=== PATIENT | male | born 1950 | race Caucasian/White ===

== ENCOUNTER 2016-06-28 19:22 | Inpatient (IN) ==
[2016-06-28 20:07] LABS: Basophils % 0.2 %; Hematocrit 43.9 % (37.5-50.1); Hemoglobin 14.8 g/dL (12.9-16.9); Immature Granulocytes % 0.4 % (0-4); Immature Platelets 1.8 % (1.1-6.1); Lymphocytes # 1.3 K/mcL (0.6-4.6); Lymphocytes % 8.6 %; Mean Corpuscular HGB Conc 33.7 g/dL (31.6-35.5); Mean Corpuscular Hemoglobin 28.9 pg (28.0-33.3); Mean Corpuscular Volume 85.7 fL (83.0-100.0); Mean Platelet Volume 8.6 fL (9.4-12.4); Monocytes % 13.3 %; Neutrophils # 11.8 K/mcL (1.6-8.9); Platelet Count 566 K/mcL (140-400); Red Blood Count 5.12 M/mcL (4.19-5.50); Red Cell Distribution Width 14.4 % (11.5-14.5); Segmented Neutrophils % 77.5 %
[2016-06-28 20:23] LABS: Albumin 3.9 g/dL (3.5-5.0); Albumin/Globulin Ratio 1.1 (1.1-2.2); Bilirubin,Direct 0.5 mg/dL (0.0-0.5); Bilirubin,Indirect 0.8 mg/dL (0.0-1.2); Bilirubin,Total 1.3 mg/dL (0.2-1.2); Calcium 10.3 mg/dL (8.6-10.8); Globulin 3.7 g/dL (2.4-3.5); Potassium 4.1 mEq/L (3.5-4.5); Total Protein 7.6 g/dL (6.0-8.3)
[2016-06-28] MEDS ORDERED: *HR* Morphine 2 MG/ML SYRINGE IVP ONE (20:39)
[2016-06-28] MEDS ORDERED: Ondansetron 4 MG/2 ML VIAL IVP ONE ×2 (20:39→21:35)
[2016-06-28] MEDS ORDERED: 0.9 % Sodium Chloride 1,000 ML IVC ONE (20:39)
--- NOTE | 2016-06-28 20:52 | Emergency Department Note ---
Disposition Clinical Impression: NAVJOT (acute kidney injury), SBO (small bowel obstruction), Abnormal CT of the abdomen Leukocytosis Qualifiers: Leukocytosis type: unspecified Qualified Code(s): D72.829 - Elevated white blood cell count, unspecified Disposition: Admitted As Inpatient Condition: Fair Referrals: Candis Head [employer] [Primary Care Provider] - Forms: Work/School Release, ED Satisfaction Letter Time of Disposition: 22:47 Abdominal Pain HPI - General Chief Complaint: ED Abdominal Pain Stated Complaint: Abd pain N/V Time Seen by Provider: 06/28/16 20:37 Source: patient Mode of arrival: ambulatory Limitations: no limitations Nursing Notes Reviewed: Yes Vital Signs Reviewed: Yes - History of Present Illness HPI Narrative: Patient is a 65-year-old male with past medical history of COPD, previous AL, stents, hyperlipidemia, hypertension. He presents today due to lower abdominal pain. He said that it started yesterday evening and is a constant sharp pain with occasional worsening exacerbation of sharp pain. He also admits to associated nausea or vomiting. Denies any chest pain, shortness of breath, fevers, dysuria, hematuria, diarrhea. Denies any blood in vomit or stool. He has never had anything like this before. Pain Scale: 6 - Related Data Home Medications Medication Instructions Recorded Confirmed Amlodipine [Norvasc] 5 mg PO QAM 01/24/15 02/01/15 Aspirin Enteric Coated [Aspirin EC] 81 mg PO QAM 01/24/15 02/01/15 Atorvastatin [Lipitor] 80 mg PO QAM 01/24/15 02/01/15 Clopidogrel [Plavix] 75 mg PO QAM 01/24/15 02/01/15 Esomeprazole Magnesium [Nexium] 40 mg PO QAM 01/24/15 02/01/15 Furosemide [Lasix] 20 mg PO QAM 01/24/15 02/01/15 Loratadine [Claritin] 10 mg PO QAM 01/24/15 02/01/15 Metoprolol [Lopressor] 75 mg PO BID 01/24/15 02/01/15 Potassium Chloride [Klor-Con 10 meq PO QAM 01/24/15 02/01/15 Sprinkle] Ranitidine HCl [Zantac] 150 mg PO BID 01/24/15 02/01/15 Previous Rx's Medication Instructions Recorded MetroNIDAZOLE [Flagyl] 500 mg PO TID #42 tablet 02/03/15 Allergies Allergy/AdvReac Type Severity Reaction Status Date / Time ezetimibe [From Vytorin] AdvReac Muscle Pain Verified 06/28/16 19:39 lisinopril AdvReac Cough Verified 06/28/16 19:39 simvastatin [From Vytorin] AdvReac Muscle Pain Verified 06/28/16 19:39 Constitutional: Denies: fever Cardiovascular: Denies: chest pain, palpitations, dyspnea on exertion Respiratory: Denies: cough, dyspnea, wheezes Gastrointestinal: Reports: abdominal pain, nausea, vomiting. Denies: diarrhea, constipation, hematemesis, melena, hematochezia Genitourinary: Denies: urgency, dysuria, frequency, hematuria Musculoskeletal: Denies: back pain Integumentary: Denies: rash Neurological: Denies: headache, weakness, numbness, paresthesias Abdominal Pain PMH - Past Medical History Medical history: Reports: arthritis, COPD, coronary artery disease, GERD, hyperlipidemia, hypertension, kidney stones, myocardial infarction, peripheral artery disease Male Surgical History: Reports: other Psychiatric history: Reports: no psych history - Social History Smoking status: Current every day smoker Alcohol use: Reports: none Drug use: Reports: none Physical Exam - General Limitations: no limitations General appearance: alert, in no apparent distress - Head Head exam: atraumatic, normocephalic, normal inspection - Eye Eye exam: Present: normal appearance, PERRL, EOMI - ENT ENT exam: normal exam, mucous membranes moist - Neck Neck exam: Present: normal inspection, full ROM, trachea midline - Chest Chest inspection: Present: normal inspection, symmetric chest wall rise - Respiratory Respiratory exam: Present: normal lung sounds bilaterally - Cardiovascular Cardiovascular exam: Present: normal rhythm, tachycardia, normal heart sounds - Abdominal Exam Abdominal exam: Present: soft, Non-Tender. Absent: tenderness, distention, guarding, rebound, rigidity, Chao's sign, Rovsing's sign, tenderness at McBurney's Point - Extremities Exam Extremities exam: Present: normal inspection, full ROM. Absent: tenderness, pedal edema - Neurological Exam Neurological exam: Present: alert, oriented X3 - Psychiatric Psychiatric exam: Present: normal affect, normal mood - Skin Skin exam: Present: warm, dry, intact, normal color Course Course Narrative: Patient is tachycardic on exam. Otherwise, the rest of his vitals were within normal limits on my exam. Abdomen exam was fairly benign, soft, nontender, possible mild distention but could be obese body habitus. thinks the patient's abdomen is distended from baseline. Basic labs, EKG, troponin, chest x-ray, CT of the pelvis will be obtained. EKG shows sinus tachycardia with no acute ST elevation or depression. Patient will given Zofran for nausea, morphine for pain control, fluids for tachycardia. 22:45 patient had leukocytosis of 15. BMP showed a Ride. Patient receiving fluids. UA negative for UTI. CT scan showed a small bowel charge him with a transition point, also soft tissue nodule adjacent to the transition point. Dr. Salgado with surgery was contacted, he is accepted the patient onto his service. Transition point nodule was discussed with him as well. NG tube placed. He had no further recommendations will request at this time. Patient currently symptomatically controlled. Chest X-Ray 06/28/16 19:41 IMPRESSION: Low lung volumes with left lateral basilar opacity, may reflect atelectasis or small consolidation. Otherwise no acute cardiopulmonary findings. D/ / Mich Winter MD / Mich Winter MD Interpreting Provider: Mich Winter MD Abdomen/Pelvis CT 06/28/16 20:59 IMPRESSION: Small bowel obstruction with transition point in the central abdomen. Irregular mesenteric soft tissue nodule with punctate calcification, adjacent to transition point likely with related desmoplastic reaction. Differential considerations include sclerosing mesenteritis and carcinoid tumor. D/ / John Miller MD / John Miller MD Interpreting Provider: John Miller MD Vital Signs Temperature 98 F 06/28/16 19:33 Pulse Rate 128 06/28/16 19:33 Respiratory Rate 22 06/28/16 19:33 Blood Pressure 131/71 06/28/16 19:33 O2 Sat by Pulse Oximetry 92 06/28/16 19:33 Temperature 98 F 06/28/16 19:33 Pulse Rate 112 06/28/16 21:30 Respiratory Rate 20 06/28/16 21:30 Blood Pressure 136/70 06/28/16 21:30 O2 Sat by Pulse Oximetry 94 06/28/16 21:30 Oxygen Delivery Oxygen Delivery Room Air Abdominal Pain - MDM Narrative Medical decision making narrative: Patient is tachycardic on exam. Otherwise, the rest of his vitals were within normal limits on my exam. Abdomen exam was fairly benign, soft, nontender, possible mild distention but could be obese body habitus. thinks the patient's abdomen is distended from baseline. Basic labs, EKG, troponin, chest x-ray, CT of the pelvis will be obtained. EKG shows sinus tachycardia with no acute ST elevation or depression. Patient will given Zofran for nausea, morphine for pain control, fluids for tachycardia. 22:45 patient had leukocytosis of 15. BMP showed a Ride. Patient receiving fluids. UA negative for UTI. CT scan showed a small bowel charge him with a transition point, also soft tissue nodule adjacent to the transition point. Dr. Salgado with surgery was contacted, he is accepted the patient onto his service. Transition point nodule was discussed with him as well. NG tube placed. He had no further recommendations will request at this time. Patient currently symptomatically controlled. - Medical Records Medical records reviewed: Yes I reviewed the patient's medical records. - Lab Data Lab results reviewed: Yes I reviewed the patient's lab results. Result diagrams: 06/28/16 20:00 06/28/16 20:00 Lab Results 06/28/16 06/28/16 06/28/16 Range/Units 20:00 20:00 20:00 WBC 15.2 H (4.3-11.1) K/mcL RBC 5.12 (4.19-5.50) M/mcL Hgb 14.8 (12.9-16.9) g/dL Hct 43.9 (37.5-50.1) % MCV 85.7 (83.0-100.0) fL MCH 28.9 (28.0-33.3) pg MCHC 33.7 (31.6-35.5) g/dL RDW 14.4 (11.5-14.5) % Plt Count 566 H (140-400) K/mcL MPV 8.6 L (9.4-12.4) fL Immature Gran % 0.4 (0-4) % Seg Neutrophils % 77.5 % Lymphocytes % 8.6 % Monocytes % 13.3 % Eosinophils % 0.0 % Basophils % 0.2 % Neutrophils # 11.8 H (1.6-8.9) K/mcL Lymphocytes # 1.3 (0.6-4.6) K/mcL Monocytes # 2.0 H (0.0-1.3) K/mcL Eosinophils # 0.0 (0.0-0.6) K/mcL Basophils # 0.0 (0.0-0.2) K/mcL Immature Plt Fraction 1.8 (1.1-6.1) % Sodium 140 (136-145) mEq/L Potassium 4.1 (3.5-4.5) mEq/L Chloride 101 (98-109) mEq/L Carbon Dioxide 27 (19-29) mEq/L BUN 23 (8-26) mg/dL Creatinine 1.82 H (0.72-1.25) mg/dL Est GFR ( Amer) 45 L (> 60) Est GFR (Non-Af Amer) 37 L (> 60) BUN/Creatinine Ratio 13 (6-26) Glucose 137 H (70-99) mg/dL Calculated Osmolality 296 (280-300) Lactic Acid (0.5-2.2) mmol/L Calcium 10.3 (8.6-10.8) mg/dL Total Bilirubin 1.3 H (0.2-1.2) mg/dL Direct Bilirubin 0.5 (0.0-0.5) mg/dL Indirect Bilirubin 0.8 (0.0-1.2) mg/dL AST 17 (5-34) Units/L ALT 16 (0-55) Units/L Alkaline Phosphatase 94 (38-126) Units/L Troponin I 0.00 (0-0.03) ng/mL Serum Total Protein 7.6 (6.0-8.3) g/dL Albumin 3.9 (3.5-5.0) g/dL Globulin 3.7 H (2.4-3.5) g/dL Albumin/Globulin Ratio 1.1 (1.1-2.2) Lipase 15 (8-78) Units/L Urine Color (Yellow) Urine Clarity (Clear) Urine pH (5.0-8.0) pH Units Ur Specific [place] (1.010-1.025) Urine Protein (Neg-Trace) mg/dL Urine Glucose (UA) (Normal) mg/dL Urine Ketones (Negative) mg/dL Urine Blood (Negative) Urine Nitrite (Negative) Urine Bilirubin (Negative) Urine Urobilinogen (Normal) mg/dL Ur Leukocyte Esterase (Negative) Urine Microscopic RBC (0-3) per hpf Urine Microscopic WBC (0-3) per hpf Ur Squamous Epith Cells (None-Few) per lpf Urine Bacteria (None-Few) per hpf Hyaline Casts (None-Few) per lpf Granular Casts (None Seen) per lpf Urine Mucus (Few) Urine Yeast Ur Culture Indicated? (NO) 06/28/16 06/28/16 Range/Units 21:00 21:06 WBC (4.3-11.1) K/mcL RBC (4.19-5.50) M/mcL Hgb (12.9-16.9) g/dL Hct (37.5-50.1) % MCV (83.0-100.0) fL MCH (28.0-33.3) pg MCHC (31.6-35.5) g/dL RDW (11.5-14.5) % Plt Count (140-400) K/mcL MPV (9.4-12.4) fL Immature Gran % (0-4) % Seg Neutrophils % % Lymphocytes % % Monocytes % % Eosinophils % % Basophils % % Neutrophils # (1.6-8.9) K/mcL Lymphocytes # (0.6-4.6) K/mcL Monocytes # (0.0-1.3) K/mcL Eosinophils # (0.0-0.6) K/mcL Basophils # (0.0-0.2) K/mcL Immature Plt Fraction (1.1-6.1) % Sodium (136-145) mEq/L Potassium (3.5-4.5) mEq/L Chloride (98-109) mEq/L Carbon Dioxide (19-29) mEq/L BUN (8-26) mg/dL Creatinine (0.72-1.25) mg/dL Est GFR ( Amer) (> 60) Est GFR (Non-Af Amer) (> 60) BUN/Creatinine Ratio (6-26) Glucose (70-99) mg/dL Calculated Osmolality (280-300) Lactic Acid 1.2 (0.5-2.2) mmol/L Calcium (8.6-10.8) mg/dL Total Bilirubin (0.2-1.2) mg/dL Direct Bilirubin (0.0-0.5) mg/dL Indirect Bilirubin (0.0-1.2) mg/dL AST (5-34) Units/L ALT (0-55) Units/L Alkaline Phosphatase (38-126) Units/L Troponin I (0-0.03) ng/mL Serum Total Protein (6.0-8.3) g/dL Albumin (3.5-5.0) g/dL Globulin (2.4-3.5) g/dL Albumin/Globulin Ratio (1.1-2.2) Lipase (8-78) Units/L Urine Color Dark Yellow (Yellow) Urine Clarity Cloudy A (Clear) Urine pH 6.0 (5.0-8.0) pH Units Ur Specific [place] 1.029 H (1.010-1.025) Urine Protein 100 H (Neg-Trace) mg/dL Urine Glucose (UA) Normal (Normal) mg/dL Urine Ketones Trace H (Negative) mg/dL Urine Blood Negative (Negative) Urine Nitrite Negative (Negative) Urine Bilirubin Small H (Negative) Urine Urobilinogen Normal (Normal) mg/dL Ur Leukocyte Esterase Small H (Negative) Urine Microscopic RBC 0-3 (0-3) per hpf Urine Microscopic WBC 5-15 H (0-3) per hpf Ur Squamous Epith Cells Many H (None-Few) per lpf Urine Bacteria Few (None-Few) per hpf Hyaline Casts Few (None-Few) per lpf Granular Casts Moderate H (None Seen) per lpf Urine Mucus Few (Few) Urine Yeast Test Not Performed Ur Culture Indicated? YES A (NO) - Radiology Data Radiology results reviewed: Yes I reviewed the patient's radiology results. Chest X-Ray 06/28/16 19:41 IMPRESSION: Low lung volumes with left lateral basilar opacity, may reflect atelectasis or small consolidation. Otherwise no acute cardiopulmonary findings. D/ / Mich Winter MD / Mich Winter MD Interpreting Provider: Mich Winter MD Abdomen/Pelvis CT 06/28/16 20:59 IMPRESSION: Small bowel obstruction with transition point in the central abdomen. Irregular mesenteric soft tissue nodule with punctate calcification, adjacent to transition point likely with related desmoplastic reaction. Differential considerations include sclerosing mesenteritis and carcinoid tumor. D/ / John Miller MD / John Miller MD Interpreting Provider: John Miller MD - EKG Data EKG attestation: Yes I reviewed and interpreted this EKG. EKG results narrative: 06/28/2016 at 19:37. Sinus tachycardia. Rate 133. TN 145. QRS 101. QTc 376. Normal axis. No acute ST elevation or depression. There are Q waves in leads 2, 3, aVF. No previous EKG for comparison. S.B.A.R. - Pedro.B.AAngie Situation: Demographics, MOA Background: Presenting Complaint, Relevant PMH, Meds, & Allergies Assessment: Vital Signs, Course and respsone to treatment, Exam Concerns, Patient/Family Expectation, Pertinant Lab Results, Outstanding Labs Recommendation: Barrier(s) to disposition, Recommendation based on pending studies, treatments, or consults S.B.A.RIsaiah Report Given to: Dr. Salgado SIsaiahBIsaiahAAngie Repor Time: 22:47 Attestation Statement - Attestation Attestation: I personally interviewed and examined this patient and my medical decision- making was reviewed with the ED Resident Physician, Dr. Alves. I agree with the documented findings, disposition and treatment plan as described except to the extent set forth below. Patient is a 65-year-old white male who is brought to the emergency department today by his for gradually worsening generalized abdominal pain that is intermittently sharp in the periumbilical area associated with nausea and vomiting. Patient had no blood or bile in his vomitus. He has had no bowel changes. No fevers or chills. Patient's with mild tenderness to palpation without peritoneal signs. Remainder of exam is unremarkable. ED workup involved a lab evaluation and CT imaging. We also obtained EKG and troponin as patient has a significant heart history. EKG was unremarkable troponin was negative. CT shows a small bowel obstruction with transition point in the mid abdomen secondary to what appears to be a small nodule that is pushing on the bowel exteriorly. Discussed the results with family and they agree with admission here and apparently his mentions that he was here back in January and was admitted at that time for small bowel obstruction. Will proceed with NG tube, nothing by mouth status and admission for further evaluation and treatment by general surgery.
[2016-06-28 21:16] LABS: Bilirubin,Urine Small (Negative); Blood,Urine Negative (Negative); Clarity,Urine Cloudy (Clear); Color,Urine Dark Yellow (Yellow); Glucose,Urine (UA) Normal (Normal); Ketones,Urine Trace mg/dL (Negative); Leukocyte Esterase,Urine Small (Negative); Nitrite,Urine Negative (Negative); Protein,Urine 100 mg/dL (Neg-Trace); Specific Gravity,Urine 1.029 (1.010-1.025); Urobilinogen,Urine Normal (Normal)
[2016-06-28 21:18] LABS: Hyaline Casts,Urine Few per lpf (None-Few); Squamous Epithelial Cell,Urine Many per lpf (None-Few)
[2016-06-28 21:38] LABS: Granular Casts,Urine Moderate per lpf (None Seen); Mucus,Urine Few (Few); RBC,Urine 0-3 per hpf (0-3)
[2016-06-28 21:39] LABS: Bacteria,Urine Few per hpf (None-Few)
[2016-06-29] MEDS: *HR* HYDROmorphone (PF) 1 MG/ML SYRINGE IVP PRN ×7 (00:34→20:07)
[2016-06-29] MEDS: Ondansetron 4 MG/2 ML VIAL IVP PRN ×2 (00:34→07:21)
[2016-06-29] MEDS: 0.9 % Sodium Chloride 1,000 ML IVC SCH ×2 (00:35→10:58)
[2016-06-29 05:47] LABS: Hematocrit 38.3 % (37.5-50.1); Mean Corpuscular HGB Conc 32.9 g/dL (31.6-35.5); Mean Corpuscular Hemoglobin 28.8 pg (28.0-33.3); Mean Corpuscular Volume 87.4 fL (83.0-100.0); Mean Platelet Volume 8.9 fL (9.4-12.4); Platelet Count 415 K/mcL (140-400); Red Blood Count 4.38 M/mcL (4.19-5.50); Red Cell Distribution Width 14.6 % (11.5-14.5)
[2016-06-29 06:02] LABS: Calcium 8.8 mg/dL (8.6-10.8); Potassium 4.1 mEq/L (3.5-4.5)
[2016-06-29 06:08] LABS: Hemoglobin 12.6 g/dL (12.9-16.9)
[2016-06-29 06:11] LABS: Basophils # 0.2 K/mcL (0.0-0.2); Eosinophils # 0.6 K/mcL (0.0-0.6); Lymphocytes # 1.5 K/mcL (0.6-4.6); Monocytes # 2.3 K/mcL (0.0-1.3); Neutrophils # 5.9 K/mcL (1.6-8.9)
[2016-06-29 06:12] LABS: Platelet Estimate Increased (Normal); Reactive Lymphocytes Present (Not Present)
[2016-06-29] MEDS ORDERED: Ringers Solution, Lactated 1,000 ML IVC ONE (07:13)
--- NOTE | 2016-06-29 07:18 | General Surg History&Physical ---
Date of Encounter: 06/29/16 Time of Encounter: 07:15 Assessment and Plan (1) Small bowel obstruction Current Visit: Yes Status: Acute The assessment and plan as outlined above was discussed with the patient and/or family members who expressed understanding and agreement. All questions were answered. Findings on CAT scan and clinical correlation are consistent with recurrent small bowel obstruction. We will plan exploratory laparotomy with possible small bowel resection. (2) Acute kidney injury superimposed on CKD Current Visit: Yes Status: Acute The assessment and plan as outlined above was discussed with the patient and/or family members who expressed understanding and agreement. All questions were answered. The patient has elevated BUN/creatinine and creatinine. Findings are consistent with prerenal azotemia. He has previous documented chronic renal disease. We will plan on aggressive hydration in the perioperative period and follow this renal function with laboratory test. (3) Coronary artery disease Current Visit: Yes Status: Chronic The assessment and plan as outlined above was discussed with the patient and/or family members who expressed understanding and agreement. All questions were answered. The patient has chronic coronary artery disease as well as hypertension. He is on a home beta joshua dose. We will add intravenous beta joshua coverage during the perioperative period Qualifiers: Coronary Disease-Associated Artery/Lesion type: [place] artery [place] vs. transplanted heart: [place] heart Associated angina: without angina Qualified Code(s): I25.10 - Atherosclerotic heart disease of [place] coronary artery without angina pectoris History of Present Illness Chief complaint: Nausea and vomiting HPI: Mr. Mario is a 65 year old male With a 2 day history of profound nausea and vomiting. He is had more than 6 episodes per day for the last 2 days. He also has crampy central abdominal pain. He was evaluated in the emergency room and found to have acute renal failure as well as CAT scan evidence of bowel obstruction. The patient has had a previous episode 2 years ago very similar that cleared spontaneously. The patient has not previously had abdominal surgery. He does have peripheral vascular disease. He has had carotid endarterectomy on the right and aortic bifurcation stent placement. The patient is chronically on Plavix. I personally reviewed the CAT scan. There is a tremendous disparity between the proximal and distal small bowel. At least a 5-1 ratio the radiologist interpreted a transition point with a calcified nodule. I was unable to appreciate this finding on my interpretation the CAT scan however the presence of a transition point is highly likely. Because this is a recurrent event I have recommended surgical exploration. Past Med Surg Social Fam HX - Past Medical History Medical history: arthritis, COPD, coronary artery disease, GERD, hyperlipidemia , hypertension, kidney stones, myocardial infarction, peripheral artery disease Psychiatric history: no psych history - Past Surgical History Surgical History: angioplasty/stent, carotid endarterectomy, LE vascular intervention, vascular surgery, other - Social History Smoking Status: Current every day smoker Packs per day: 1 Smokeless Tobacco Status: No Alcohol use: none Drug use: none - Family History Mother Adopted: No Living Status: Hx Family Cardiac Disorders: Yes Father Living Status: Hx Family Cardiac Disorders: Yes Brother Living Status: Age at : 48 Hx Family Cardiac Disorders: Yes Hx Family Respiratory Disorders: No Hx Family Cancer: No Hx Family GI Disorders: No Hx Family Genitourinary Disorders: No Hx Family Endocrine Disorder: No Hx Family Musculoskeletal Disorders: No Hx Family Neuromuscular Disorders: No Hx Family Neurologic Disorders: No Hx Family HEENT Disorders: No Hx Family Autoimmune Disorders: No Hx Family Reproductive Disorders: No Hx Family Psychosocial Disorders: No Hx Family Medical Disorders: No Medications and Allergies Amlodipine [Norvasc] 5 mg PO QAM 01/24/15 [History] Aspirin Enteric Coated [Aspirin EC] 81 mg PO QAM 01/24/15 [History] Clopidogrel [Plavix] 75 mg PO QAM 01/24/15 [History] Esomeprazole Magnesium [Nexium] 40 mg PO QAM 01/24/15 [History] Loratadine [Claritin] 10 mg PO QAM 01/24/15 [History] Metoprolol [Lopressor] 75 mg PO BID 01/24/15 [History] Atorvastatin Calcium [Lipitor] 80 mg PO HS 06/28/16 [History] Nitroglycerin [Nitrostat] 0.4 mg SL Q5M PRN 06/28/16 [History] Potassium Chloride 10 meq PO DAILY 06/28/16 [History] Sildenafil Citrate [Viagra] 50 mg PO DAILY PRN 06/28/16 [History] Tamsulosin [Flomax] 0.4 mg PO DAILY 06/28/16 [History] Allergies ezetimibe [From Vytorin] Adverse Reaction (Verified 06/28/16 19:39) Muscle Pain lisinopril Adverse Reaction (Verified 06/28/16 19:39) Cough simvastatin [From Vytorin] Adverse Reaction (Verified 06/28/16 19:39) Muscle Pain Review of Systems All systems PM: reviewed and no additional remarkable complaints except as stated All systems PM: A 10-system review of systems was performed and is negative for pertinent findings except as documented above in the HPI. General Surgery Exam Initial Vital Signs Temp Pulse Resp BP Pulse Ox 98 F 128 22 131/71 92 06/28/16 19:33 06/28/16 19:33 06/28/16 19:33 06/28/16 19:33 06/28/16 19:33 - General physical appearance well developed, well nourished, no distress - ENT normal pinna, normal nares, normal mucosa, no hearing loss, no congestion, Other (Well-healed right carotid endarterectomy incision) - Neck no masses, no bruits, trachea midline, no lymphadectomy, no venous distension - Respiratory normal expansion, normal respiratory effort, clear to percussion, clear to auscultation - Cardiovascular Cardiovascular exam: Present: RRR, 15, 16 - Abdomen Abdomen general surgery: Present: bowel sounds present (High-pitched and tinkles consistent with bowel obstruction), non tender, distended - Integumentary Integumentary general surgery: Present: warm and dry, other (No jaundice) Results - Labs 06/29/16 04:43 06/29/16 04:43 Abnormal lab results Hgb 12.6 g/dL (12.9-16.9) L D 06/29/16 04:43 RDW 14.6 % (11.5-14.5) H 06/29/16 04:43 Plt Count 415 K/mcL (140-400) H 06/29/16 04:43 MPV 8.9 fL (9.4-12.4) L 06/29/16 04:43 Monocytes # 2.3 K/mcL (0.0-1.3) H 06/29/16 04:43 Reactive Lymphocytes Present (Not Present) A 06/29/16 04:43 Platelet Estimate Increased (Normal) H 06/29/16 04:43 BUN 27 mg/dL (8-26) H 06/29/16 04:43 Creatinine 1.65 mg/dL (0.72-1.25) H 06/29/16 04:43 Est GFR ( Amer) 51 (> 60) L 06/29/16 04:43 Est GFR (Non-Af Amer) 42 (> 60) L 06/29/16 04:43 Glucose 108 mg/dL (70-99) H 06/29/16 04:43 POC Glucose 113 (58-89) H 06/29/16 05:30 Total Bilirubin 1.3 mg/dL (0.2-1.2) H 06/28/16 20:00 Globulin 3.7 g/dL (2.4-3.5) H 06/28/16 20:00 Urine Clarity Cloudy (Clear) A 06/28/16 21:00 Ur Specific [place] 1.029 (1.010-1.025) H 06/28/16 21:00 Urine Protein 100 mg/dL (Neg-Trace) H 06/28/16 21:00 Urine Ketones Trace mg/dL (Negative) H 06/28/16 21:00 Urine Bilirubin Small (Negative) H 06/28/16 21:00 Ur Leukocyte Esterase Small (Negative) H 06/28/16 21:00 Urine Microscopic WBC 5-15 per hpf (0-3) H 06/28/16 21:00 Ur Squamous Epith Cells Many per lpf (None-Few) H 06/28/16 21:00 Granular Casts Moderate per lpf (None Seen) H 06/28/16 21:00 Ur Culture Indicated? YES (NO) A 06/28/16 21:00 Diabetes panel 06/29/16 Range/Units 04:43 Sodium 141 (136-145) mEq/L Potassium 4.1 (3.5-4.5) mEq/L Chloride 106 (98-109) mEq/L Carbon Dioxide 29 (19-29) mEq/L BUN 27 H (8-26) mg/dL Creatinine 1.65 H (0.72-1.25) mg/dL Glucose 108 H (70-99) mg/dL Calcium 8.8 (8.6-10.8) mg/dL Calcium panel 06/29/16 Range/Units 04:43 Calcium 8.8 (8.6-10.8) mg/dL Pituitary panel 06/29/16 Range/Units 04:43 Sodium 141 (136-145) mEq/L Potassium 4.1 (3.5-4.5) mEq/L Chloride 106 (98-109) mEq/L Carbon Dioxide 29 (19-29) mEq/L BUN 27 H (8-26) mg/dL Creatinine 1.65 H (0.72-1.25) mg/dL Glucose 108 H (70-99) mg/dL Calcium 8.8 (8.6-10.8) mg/dL Adrenal panel 06/29/16 Range/Units 04:43 Sodium 141 (136-145) mEq/L Potassium 4.1 (3.5-4.5) mEq/L Chloride 106 (98-109) mEq/L Carbon Dioxide 29 (19-29) mEq/L BUN 27 H (8-26) mg/dL Creatinine 1.65 H (0.72-1.25) mg/dL Glucose 108 H (70-99) mg/dL Calcium 8.8 (8.6-10.8) mg/dL All other labs normal. - Imaging CT scan - abdomen: image reviewed (I personally reviewed the CAT scan of the abdomen. Findings are consistent with small bowel obstruction. I am unable to appreciate the nodule at the transition point however the radiologist has noted this interpretation)
--- NOTE | 2016-06-29 09:27 | Electrocardiograph Report ---
[place] [id number] Test Date: 2016-06-28 Pat Name: Chas Mario Department: 102 Room: 3A46 Gender: M [employer] Information [employer] Professor: : 1950 Requested By: Heather Acharya Order Number: [id number] Reading MD: Asad Mcdaniel DO Measurements Intervals [place] Rate: 133 P: 50 NE: 145 QRS: 79 QRSD: 101 T: 44 QT: 298 QTc: 376 Interpretive Statements SINUS TACHYCARDIA INFERIOR MYOCARDIAL INFARCTION, PROBABLY OLD Electronically Signed On 06-29-2016 9:26:10 EDT by Asad Mcdaniel DO
[2016-06-29] MEDS: Albuterol 2.5 MG/3 ML NEBULIZER IH SCH ×3 (10:23→22:35)
[2016-06-29] MEDS: *HR* Metoprolol 5 MG/5 ML VIAL IVP SCH ×2 (13:38→18:29)
[2016-06-29] MEDS ORDERED: *HR* Rocuronium Bromide 50 MG/5 ML VIAL ONE (16:54)
[2016-06-29] MEDS ORDERED: *HR* Succinylcholine 200 MG/10 ML VIAL IVP ONE (16:54)
[2016-06-29] MEDS ORDERED: Lidocaine -MPF 2% 2 ML VIAL ONE (16:54)
[2016-06-29] MEDS ORDERED: *HR* Midazolam HCl 2 MG/2 ML VIAL ONE (16:55)
[2016-06-29] MEDS ORDERED: *HR* Propofol 200 MG/20 ML VIAL IVP ONE (16:55)
[2016-06-29] MEDS ORDERED: *HR* FentaNYL (PF) 100 MCG/2 ML VIAL ONE (17:01)
[2016-06-29] MEDS ORDERED: Lidocaine -MPF 4% 5 ML AMPUL ONE (17:09)
[2016-06-30] MEDS: *HR* Metoprolol 5 MG/5 ML VIAL IVP SCH ×5 (00:32→23:27)
[2016-06-30] MEDS: 0.9 % Sodium Chloride 1,000 ML IVC SCH ×5 (00:32→20:50)
[2016-06-30] MEDS: *HR* HYDROmorphone (PF) 1 MG/ML SYRINGE IVP PRN ×7 (03:14→22:34)
[2016-06-30] MEDS: Ondansetron 4 MG/2 ML VIAL IVP PRN (03:14)
[2016-06-30] MEDS: Albuterol 2.5 MG/3 ML NEBULIZER IH SCH ×4 (04:17→22:39)
--- NOTE | 2016-06-30 13:30 | Anesthesia Evaluation PreOp ---
Date of Encounter: 06/30/16 Time of Encounter: 13:30 - Past History Planned Operation: Exp. Lap. Cardiac History: MD, HTN, Hyperlipidemia, Other (CAD, PAD) Pulmonary History: COPD Other Medical History: Renal (CRD stage III, Stones), GERD, Other (C. Diff.) Alcohol Use: none Drug use: none Medications and Allergies Amlodipine [Norvasc] 5 mg PO QAM 01/24/15 [History] Aspirin Enteric Coated [Aspirin EC] 81 mg PO QAM 01/24/15 [History] Clopidogrel [Plavix] 75 mg PO QAM 01/24/15 [History] Esomeprazole Magnesium [Nexium] 40 mg PO QAM 01/24/15 [History] Loratadine [Claritin] 10 mg PO QAM 01/24/15 [History] Metoprolol [Lopressor] 75 mg PO BID 01/24/15 [History] Atorvastatin Calcium [Lipitor] 80 mg PO HS 06/28/16 [History] Nitroglycerin [Nitrostat] 0.4 mg SL Q5M PRN 06/28/16 [History] Potassium Chloride 10 meq PO DAILY 06/28/16 [History] Sildenafil Citrate [Viagra] 50 mg PO DAILY PRN 06/28/16 [History] Tamsulosin [Flomax] 0.4 mg PO DAILY 06/28/16 [History] Allergies ezetimibe [From Vytorin] Adverse Reaction (Verified 06/28/16 19:39) Muscle Pain lisinopril Adverse Reaction (Verified 06/28/16 19:39) Cough simvastatin [From Vytorin] Adverse Reaction (Verified 06/28/16 19:39) Muscle Pain - Meds/Allergy Pre-op Review Medications Reviewed: Yes Allergies Reviewed: Yes Beta Blockers on Current Med List: Yes If Beta Blockers taken, Date/Time (Last Dose taken): 06/30/2016 11:20 Anesthesia Results - Labs 06/29/16 04:43 06/29/16 04:43
[2016-06-30] MEDS ORDERED: *HR* FentaNYL (PF) 100 MCG/2 ML VIAL ONE (16:17)
[2016-06-30] MEDS ORDERED: *HR* Propofol 200 MG/20 ML VIAL IVP ONE (16:17)
[2016-06-30] MEDS ORDERED: Lidocaine -MPF 2% 2 ML VIAL ONE (16:19)
[2016-06-30] MEDS ORDERED: *HR* Succinylcholine 200 MG/10 ML VIAL IVP ONE (16:19)
[2016-06-30] MEDS ORDERED: *HR* Rocuronium Bromide 50 MG/5 ML VIAL ONE (16:20)
[2016-06-30] MEDS ORDERED: Ketamine *HR* 500 MG/10 ML MDV ONE (16:21)
[2016-06-30] MEDS ORDERED: Lidocaine -MPF 4% 5 ML AMPUL ONE (16:22)
[2016-06-30] MEDS ORDERED: Acetaminophen IV 1,000 MG/100 ML INFUS..BTL ONE (16:27)
[2016-06-30] MEDS ORDERED: CefOXitin 2,000 MG VIAL IVPB ONE (17:03)
[2016-06-30] MEDS ORDERED: Ondansetron 4 MG/2 ML VIAL ONE (17:22)
[2016-06-30] MEDS ORDERED: Dexamethasone 4 MG/ML VIAL ONE (17:22)
[2016-06-30] MEDS ORDERED: *HR* Labetalol 100 MG/20 ML MDV IVP PRN ×2 (17:36→20:12)
[2016-06-30] MEDS ORDERED: *HR* Promethazine 25 MG/ML VIAL IVP PRN (17:36)
[2016-06-30] MEDS ORDERED: Neostigmine Methylsulfate 3 MG/3 ML SYRINGE ONE (18:03)
[2016-06-30] MEDS ORDERED: Esmolol 100 MG/10 ML VIAL IVP ONE (18:04)
[2016-06-30] MEDS ORDERED: *HR* HYDROmorphone 2 MG/ML SYRINGE ONE (18:08)
--- NOTE | 2016-06-30 18:17 | Operative Note ---
Date of procedure: 06/30/16 Pre-op diagnosis: Small bowel obstruction Post-op diagnosis: other (Small bowel tumor with mesenteric adenopathy) Procedure: Resection of small bowel and mesentery Anesthesia: NOHEMI Surgeon: Diego Salgado Estimated blood loss (cc): 40 Specimen: Small bowel and mesentery Condition: stable Disposition: PACU Procedure in Detail: After informed consent the patient was taken to the operating room placed in the supine position and given adequate general endotracheal anesthesia. The abdomen is prepped and draped in sterile fashion utilizing ChloraPrep standard draping techniques. Timeout was taken patient was identified. A member midline incision above and below the umbilicus. Pain of the abdomen. The small bowel was explored. There was a single area of obstruction. On examination this appeared to be a rockhard area in the small bowel and there were changes in the mesentery immediately below this. I marked an area 8 cm on either side of the palpable area and a planned division of the mesentery to include the abnormal tissue. The small bowel was divided with INDU proximal and distal. I then divided the mesentery with clamps and hemostatic ligatures. Several stick ties of 3-0 silk were used for hemostasis in the mesentery. The specimen was passed off the field. I brought the 2 ends of the small bowel in 2 antimesenteric apposition. I created a [id number] anastomosis with INDU and then closed the resulting enterotomy with a TA 60. This gave an excellent technical result. The staple line was circumferentially reinforced with interrupted 3-0 silk. The mesentery was closed with interrupted figure-of- eight 3-0 silk's. From a careful exploration of the abdomen I could find no other areas of adenopathy or changes in the mesentery. The liver was smooth with no evidence of metastatic disease by palpation. We were unable to pass the nasogastric tube in the stomach. The gastric tube was omitted. The abdomen was irrigated with copious amounts of antibiotic containing solution. The midline was closed with looped 0 PDS and the skin with interrupted 2-0 Vicryl in the subcutaneous layer and skin ludmila in the superficial layer. Transfered the recovery area in stable condition
[2016-06-30] MEDS ORDERED: *HR* HYDROmorphone (PF) 1 MG/ML SYRINGE IVP PRN (20:12)
--- NOTE | 2016-06-30 20:28 | Anesthesia Evaluation Post Op ---
Date of Encounter: 06/30/16 Time of Encounter: 20:00 - Vital Signs Vital Signs: Vital Signs/O2 Sat/Glucose, Most Current Temp Pulse Resp BP Pulse Ox 06/30/16 20:22 97.7 F 92 16 170/78 90 06/30/16 20:04 98 16 163/90 92 06/30/16 19:54 99.7 F H 88 16 168/80 92 06/30/16 19:44 95 16 155/83 91 06/30/16 19:34 91 16 162/86 91 06/30/16 19:24 99.8 F H 113 16 155/98 91 06/30/16 19:14 93 16 157/83 94 06/30/16 19:04 95 16 159/81 93 06/30/16 18:54 99.7 F H 93 16 164/83 92 06/30/16 18:44 96 16 163/81 92 06/30/16 18:34 99 16 167/83 92 06/30/16 18:24 97.8 F 101 16 165/83 92 - Lungs Lungs: Clear Ascult./Percussion - Airway Airway: Non-obstructed - Cardiovascular Regular Rate - Mental Status Mental Status: Alert & Oriented, Answers Appropriately - Pain Pain Scale: 1 - Nausea Vomiting Nausea Vomiting: Not Present - Hydration Hydration: NPO - Discharge PostOp Status: Transfer Patient to floor
[2016-06-30] MEDS: Nicotine 14 MG PATCH.TD24 TD SCH (21:31)
[2016-07-01] MEDS: *HR* HYDROmorphone (PF) 1 MG/ML SYRINGE IVP PRN ×7 (02:04→22:46)
[2016-07-01 03:29] LABS: Hematocrit 35.7 % (37.5-50.1); Hemoglobin 11.4 g/dL (12.9-16.9); Mean Corpuscular HGB Conc 31.9 g/dL (31.6-35.5); Mean Corpuscular Hemoglobin 28.8 pg (28.0-33.3); Mean Corpuscular Volume 90.2 fL (83.0-100.0); Mean Platelet Volume 8.8 fL (9.4-12.4); Platelet Count 354 K/mcL (140-400); Red Blood Count 3.96 M/mcL (4.19-5.50); Red Cell Distribution Width 14.6 % (11.5-14.5)
[2016-07-01 03:42] LABS: BUN/Creatinine Ratio 17 (6-26); Calcium 8.6 mg/dL (8.6-10.8); Carbon Dioxide 23 mEq/L (19-29); Chloride 110 mEq/L (98-109); Glucose 115 mg/dL (70-99); Osmolality,Calculated 294 (280-300); Potassium 4.3 mEq/L (3.5-4.5); Sodium 141 mEq/L (136-145); eGFR For African Americans > 60 (> 60); eGFR For Non-African Americans > 60 (> 60)
[2016-07-01 03:43] LABS: Blood Urea Nitrogen 16 mg/dL (8-26)
[2016-07-01] MEDS: Albuterol 2.5 MG/3 ML NEBULIZER IH SCH ×4 (03:51→22:03)
[2016-07-01] MEDS: 0.9 % Sodium Chloride 1,000 ML IVC SCH ×3 (04:47→21:47)
[2016-07-01] MEDS: *HR* Metoprolol 5 MG/5 ML VIAL IVP SCH ×3 (05:00→18:11)
[2016-07-01] MEDS: Nicotine 14 MG PATCH.TD24 TD SCH (09:03)
--- NOTE | 2016-07-01 11:33 | General Surgery Progress Note ---
Date of Encounter: 07/01/16 Time of Encounter: 11:30 - Assessment and Plan (1) Small bowel obstruction Current Visit: Yes Status: Acute POD #1 Resection of small bowel and mesentery with Dr. Salgado NPO except ice chips while awaiting return of bowel function IV fluids- 125ml/hour Supportive care/pain control IS every 1 hour while awake Ambulate in hallways PPI therapy am labs pathology pending (2) DVT prophylaxis Current Visit: Yes Status: Acute EPCDs to bilateral lower extremities for DVT prophylaxis Ambulate hallways TID with assistance Subjective Patient reports: no new complaints, feels better, still having pain (surgical), voiding w/o difficulty, no flatus, no bowel movement, afebrile Objective Vital Signs - Last 8 Hours Temp Pulse Resp BP Pulse Ox 07/01/16 10:46 97.9 F 103 18 162/81 90 07/01/16 10:23 18 85 07/01/16 06:48 98.2 F 94 18 166/90 92 07/01/16 03:51 16 90 Intake and Output 06/30/16 07/01/16 07/01/16 23:59 07:59 15:59 Intake Total 1000 / 1000 0 / 0 Output Total 415 / 415 0 / 0 0 / 0 Balance -415 / -415 1000 / 1000 0 / 0 Intake: IV Fluids 1000 / 1000 0.9 % Sodium Chloride 1, 1000 / 1000 000 ML @ 125 mls/hr IVC . Q8H [facility] Rx#:[id number] Oral 0 / 0 0 / 0 Output: Urine 375 / 375 0 / 0 0 / 0 Estimated Blood Loss 40 / 40 Other: Meal NPO Weight 112.548 kg Blood Glucose* 106 113 Patient Weight 07/01/16 23:59 Weight 112.548 kg - General physical appearance well developed, well nourished, no distress - Eyes normal ocular movement - ENT dry mucosa, atraumatic, normocephalic - Neck Neck exam: trachea midline - Respiratory normal respiratory effort, clear to auscultation, other (diminished bibasilar bases) - Cardiovascular Cardiovascular exam: Present: RRR - Abdomen Abdomen: Present: soft, tender (expected post-operative tenderness) - Incision Incision: Present: clean and dry, intact - Neurologic CN 2-12 grossly intact - Psychiatric oriented to time, oriented to person, oriented to place, speech is normal, memory intact - Labs 07/01/16 02:51 07/01/16 02:51 Diabetes panel 07/01/16 Range/Units 02:51 Sodium 141 (136-145) mEq/L Potassium 4.3 (3.5-4.5) mEq/L Chloride 110 H (98-109) mEq/L Carbon Dioxide 23 (19-29) mEq/L BUN 16 D (8-26) mg/dL Creatinine 0.92 (0.72-1.25) mg/dL Glucose 115 H (70-99) mg/dL Calcium 8.6 (8.6-10.8) mg/dL Calcium panel 07/01/16 Range/Units 02:51 Calcium 8.6 (8.6-10.8) mg/dL Pituitary panel 07/01/16 Range/Units 02:51 Sodium 141 (136-145) mEq/L Potassium 4.3 (3.5-4.5) mEq/L Chloride 110 H (98-109) mEq/L Carbon Dioxide 23 (19-29) mEq/L BUN 16 D (8-26) mg/dL Creatinine 0.92 (0.72-1.25) mg/dL Glucose 115 H (70-99) mg/dL Calcium 8.6 (8.6-10.8) mg/dL Adrenal panel 07/01/16 Range/Units 02:51 Sodium 141 (136-145) mEq/L Potassium 4.3 (3.5-4.5) mEq/L Chloride 110 H (98-109) mEq/L Carbon Dioxide 23 (19-29) mEq/L BUN 16 D (8-26) mg/dL Creatinine 0.92 (0.72-1.25) mg/dL Glucose 115 H (70-99) mg/dL Calcium 8.6 (8.6-10.8) mg/dL - VTE Documentation of Mechanical Device: Intermittent pneumatic compression device Consult Discharge Plan - Plan Referrals: Candis Head, RESIDENTIAL CONSTRUCTION INSTRUCTOR [Primary Care Provider] - - Attending Attestation I examined this patient and my medical decision-making was reviewed with the AIRPLANE PILOT/PA/Advanced Practice Nurse/Resident Physician. I agree with the documented findings, disposition and treatment plan as described except to the extent set forth below. The patient is seen and evaluated on afternoon rounds. I am concerned that this represents malignancy and we will await pathology for further treatment planning. The bowel obstruction should be resolved with this resection. We will await bowel function to start diet Diego Salgado MD FACS
[2016-07-02] MEDS: *HR* Metoprolol 5 MG/5 ML VIAL IVP SCH ×5 (00:19→23:05)
[2016-07-02] MEDS ORDERED: *HR* Metoprolol 5 MG/5 ML VIAL IVP ONE (00:52)
[2016-07-02] MEDS: Albuterol 2.5 MG/3 ML NEBULIZER IH SCH ×4 (03:08→21:24)
[2016-07-02] MEDS: 0.9 % Sodium Chloride 1,000 ML IVC SCH ×3 (06:32→23:05)
[2016-07-02 06:45] LABS: Basophils % 0.3 %; Eosinophils # 0.1 K/mcL (0.0-0.6); Eosinophils % 0.7 %; Hematocrit 33.4 % (37.5-50.1); Hemoglobin 10.9 g/dL (12.9-16.9); Immature Granulocytes % 0.3 % (0-4); Lymphocytes # 1.5 K/mcL (0.6-4.6); Mean Corpuscular HGB Conc 32.6 g/dL (31.6-35.5); Mean Corpuscular Hemoglobin 29.6 pg (28.0-33.3); Mean Corpuscular Volume 90.8 fL (83.0-100.0); Mean Platelet Volume 9.3 fL (9.4-12.4); Monocytes # 1.9 K/mcL (0.0-1.3); Monocytes % 18.1 %; Neutrophils # 6.9 K/mcL (1.6-8.9); Platelet Count 353 K/mcL (140-400); Red Blood Count 3.68 M/mcL (4.19-5.50); Red Cell Distribution Width 14.8 % (11.5-14.5); Segmented Neutrophils % 66.6 %
[2016-07-02 06:55] LABS: BUN/Creatinine Ratio 14 (6-26); Blood Urea Nitrogen 15 mg/dL (8-26); Calcium 8.6 mg/dL (8.6-10.8); Carbon Dioxide 22 mEq/L (19-29); Chloride 114 mEq/L (98-109); Glucose 84 mg/dL (70-99); Osmolality,Calculated 302 (280-300); Potassium 3.4 mEq/L (3.5-4.5); Sodium 146 mEq/L (136-145); eGFR For African Americans > 60 (> 60); eGFR For Non-African Americans > 60 (> 60)
[2016-07-02 07:21] LABS: Platelet Estimate Normal (Normal)
[2016-07-02] MEDS: Nicotine 14 MG PATCH.TD24 TD SCH (09:42)
--- NOTE | 2016-07-02 13:09 | General Surgery Progress Note ---
Date of Encounter: 07/02/16 Time of Encounter: 13:00 - Assessment and Plan (1) Small bowel obstruction Current Visit: Yes Status: Acute POD #1 Resection of small bowel and mesentery with Dr. Salgado NPO except ice chips while awaiting return of bowel function IV fluids- 125ml/hour Supportive care/pain control IS every 1 hour while awake Ambulate in hallways PPI therapy am labs pathology pending 07/02/2016. The patient has done quite well after surgery and has now developed bowel sounds. Start clear liquids. We will get pathology results as Soon As Available. (2) DVT prophylaxis Current Visit: Yes Status: Acute EPCDs to bilateral lower extremities for DVT prophylaxis Ambulate hallways TID with assistance Subjective Narrative: The patient is doing well after small bowel resection for small bowel tumor and obstruction. He has developed bowel sounds and is passing flatus. I will start him on clear liquid diet. We will await pathology. The differential diagnosis includes primary adenocarcinoma of the small bowel, metastatic disease , and neuroendocrine tumor such as carcinoid. Objective Vital Signs - Last 8 Hours Temp Pulse Resp BP Pulse Ox 07/02/16 10:36 97.6 F 94 16 149/87 93 07/02/16 10:24 16 94 07/02/16 06:39 97.5 F L 91 16 129/78 90 Intake and Output 07/01/16 07/02/16 07/02/16 23:59 07:59 15:59 Intake Total 1000 / 1000 950 / 950 Output Total 825 / 825 150 / 150 50 / 50 Balance 175 / 175 800 / 800 -50 / -50 Intake: IV Fluids 1000 / 1000 950 / 950 0.9 % Sodium Chloride 1, 1000 / 1000 950 / 950 000 ML @ 125 mls/hr IVC . Q8H [facility] Rx#:[id number] Oral 0 / 0 0 / 0 Output: Urine 825 / 825 150 / 150 50 / 50 Other: Meal NPO Percent of Meal Consumed 0% # Bowel Movements 0 0 Weight 112.3 kg Blood Glucose* 93 86 89 Patient Weight 07/02/16 23:59 Weight 112.3 kg - General physical appearance well developed, well nourished, no pain - Neck Neck exam: no masses, no bruits, trachea midline - Respiratory normal expansion, normal respiratory effort, clear to percussion, clear to auscultation - Cardiovascular Cardiovascular exam: Present: RRR, no murmurs/rubs/gallops - Abdomen Abdomen: Present: bowel sounds present, soft, non tender - Incision Incision: Present: clean and dry - Labs 07/02/16 05:46 07/02/16 05:46 Diabetes panel 07/02/16 Range/Units 05:46 Sodium 146 H (136-145) mEq/L Potassium 3.4 L (3.5-4.5) mEq/L Chloride 114 H (98-109) mEq/L Carbon Dioxide 22 (19-29) mEq/L BUN 15 (8-26) mg/dL Creatinine 1.06 (0.72-1.25) mg/dL Glucose 84 (70-99) mg/dL Calcium 8.6 (8.6-10.8) mg/dL Calcium panel 07/02/16 Range/Units 05:46 Calcium 8.6 (8.6-10.8) mg/dL Pituitary panel 07/02/16 Range/Units 05:46 Sodium 146 H (136-145) mEq/L Potassium 3.4 L (3.5-4.5) mEq/L Chloride 114 H (98-109) mEq/L Carbon Dioxide 22 (19-29) mEq/L BUN 15 (8-26) mg/dL Creatinine 1.06 (0.72-1.25) mg/dL Glucose 84 (70-99) mg/dL Calcium 8.6 (8.6-10.8) mg/dL Adrenal panel 07/02/16 Range/Units 05:46 Sodium 146 H (136-145) mEq/L Potassium 3.4 L (3.5-4.5) mEq/L Chloride 114 H (98-109) mEq/L Carbon Dioxide 22 (19-29) mEq/L BUN 15 (8-26) mg/dL Creatinine 1.06 (0.72-1.25) mg/dL Glucose 84 (70-99) mg/dL Calcium 8.6 (8.6-10.8) mg/dL - VTE Documentation of Mechanical Device: Intermittent pneumatic compression device Consult Discharge Plan - Plan Referrals: Candis Head, NICOLÁS [Primary Care Provider] -
[2016-07-03] MEDS: Albuterol 2.5 MG/3 ML NEBULIZER IH SCH ×4 (03:36→20:49)
[2016-07-03] MEDS: *HR* Metoprolol 5 MG/5 ML VIAL IVP SCH ×4 (05:25→23:44)
[2016-07-03] MEDS: 0.9 % Sodium Chloride 1,000 ML IVC SCH ×3 (05:27→20:40)
[2016-07-03 07:42] LABS: Hematocrit 32.9 % (37.5-50.1); Hemoglobin 10.8 g/dL (12.9-16.9); Mean Corpuscular HGB Conc 32.8 g/dL (31.6-35.5); Mean Corpuscular Hemoglobin 29.3 pg (28.0-33.3); Mean Corpuscular Volume 89.4 fL (83.0-100.0); Mean Platelet Volume 9.2 fL (9.4-12.4); Platelet Count 336 K/mcL (140-400); Red Blood Count 3.68 M/mcL (4.19-5.50); Red Cell Distribution Width 14.7 % (11.5-14.5)
[2016-07-03 08:27] LABS: BUN/Creatinine Ratio 12 (6-26); Blood Urea Nitrogen 10 mg/dL (8-26); Calcium 8.3 mg/dL (8.6-10.8); Carbon Dioxide 21 mEq/L (19-29); Chloride 110 mEq/L (98-109); Glucose 109 mg/dL (70-99); Osmolality,Calculated 294 (280-300); Potassium 2.9 mEq/L (3.5-4.5); Sodium 142 mEq/L (136-145); eGFR For African Americans > 60 (> 60); eGFR For Non-African Americans > 60 (> 60)
[2016-07-03] MEDS: Nicotine 14 MG PATCH.TD24 TD SCH (09:17)
--- NOTE | 2016-07-03 13:12 | General Surgery Progress Note ---
Date of Encounter: 07/03/16 Time of Encounter: 12:55 - Assessment and Plan (1) Small bowel obstruction Current Visit: Yes Status: Acute POD #1 Resection of small bowel and mesentery with Dr. Salgado NPO except ice chips while awaiting return of bowel function IV fluids- 125ml/hour Supportive care/pain control IS every 1 hour while awake Ambulate in hallways PPI therapy am labs pathology pending 07/02/2016. The patient has done quite well after surgery and has now developed bowel sounds. Start clear liquids. We will get pathology results as Soon As Available 07/03/2016 the patient is doing quite well. He had bowel movement today. We will advance to regular diet and anticipate discharge for tomorrow. (2) DVT prophylaxis Current Visit: Yes Status: Acute EPCDs to bilateral lower extremities for DVT prophylaxis Ambulate hallways TID with assistance Subjective Narrative: The patient feels well and is having much less pain. He did have a bowel movement today. We will plan on advancing his diet to regular and if he tolerates this she will be discharged tomorrow. I anticipate having his pathology report tomorrow and I will review this with him when available. Objective Vital Signs - Last 8 Hours Temp Pulse Resp BP Pulse Ox 07/03/16 10:23 16 93 07/03/16 10:17 98.1 F 95 16 186/96 95 07/03/16 06:41 97.5 F L 86 18 151/88 91 Intake and Output 07/02/16 07/03/16 07/03/16 23:59 07:59 15:59 Intake Total 1000 / 1000 1840 / 1840 600 / 600 Output Total 75 / 75 450 / 450 Balance 925 / 925 1390 / 1390 600 / 600 Intake: IV Fluids 1000 / 1000 1000 / 1000 0.9 % Sodium Chloride 1, 1000 / 1000 1000 / 1000 000 ML @ 125 mls/hr IVC . Q8H [facility] Rx#:[id number] Oral 840 / 840 600 / 600 Output: Urine 75 / 75 450 / 450 Other: Meal Breakfast Stool Size Copious Large Stool Consistency liquid loose liquid Stool Color Brown Brown # Voids 1 # Bowel Movements 1 0 1 Weight 112 kg Patient Weight 07/03/16 23:59 Weight 112 kg - General physical appearance well developed, well nourished - Respiratory normal expansion, normal respiratory effort, clear to percussion, clear to auscultation - Cardiovascular Cardiovascular exam: Present: RRR, no murmurs/rubs/gallops - Abdomen Abdomen: Present: bowel sounds present, soft, non tender - Incision Incision: Present: draining (Serosanguineous drainage from the wound is noted. There is no erythema.) - Psychiatric oriented to time, oriented to person, oriented to place, speech is normal, memory intact - Labs 07/03/16 07:05 07/03/16 07:05 Diabetes panel 07/03/16 Range/Units 07:05 Sodium 142 (136-145) mEq/L Potassium 2.9 L (3.5-4.5) mEq/L Chloride 110 H (98-109) mEq/L Carbon Dioxide 21 (19-29) mEq/L BUN 10 (8-26) mg/dL Creatinine 0.84 (0.72-1.25) mg/dL Glucose 109 H (70-99) mg/dL Calcium 8.3 L (8.6-10.8) mg/dL Calcium panel 07/03/16 Range/Units 07:05 Calcium 8.3 L (8.6-10.8) mg/dL Pituitary panel 07/03/16 Range/Units 07:05 Sodium 142 (136-145) mEq/L Potassium 2.9 L (3.5-4.5) mEq/L Chloride 110 H (98-109) mEq/L Carbon Dioxide 21 (19-29) mEq/L BUN 10 (8-26) mg/dL Creatinine 0.84 (0.72-1.25) mg/dL Glucose 109 H (70-99) mg/dL Calcium 8.3 L (8.6-10.8) mg/dL Adrenal panel 07/03/16 Range/Units 07:05 Sodium 142 (136-145) mEq/L Potassium 2.9 L (3.5-4.5) mEq/L Chloride 110 H (98-109) mEq/L Carbon Dioxide 21 (19-29) mEq/L BUN 10 (8-26) mg/dL Creatinine 0.84 (0.72-1.25) mg/dL Glucose 109 H (70-99) mg/dL Calcium 8.3 L (8.6-10.8) mg/dL - VTE Documentation of Mechanical Device: Intermittent pneumatic compression device Consult Discharge Plan - Plan Referrals: Candis Head, MANUFACTURING PROJECT MANAGER [Primary Care Provider] -
--- NOTE | 2016-07-03 20:12 | Electrocardiograph Report ---
[address] [place] [address] Test Date: 2016-07-02 Pat Name: Chas Mario Department: 113 Room: 3A46 Gender: Jewel Gauger: SALMA : 1950 Requested By: Diego Salgado Order Number: [id number] Reading MD: Ulises Baptiste MD Measurements Intervals [place] Rate: 160 P: MT: 0 QRS: 60 QRSD: 98 T: -11 QT: 278 QTc: 367 Interpretive Statements ATRIAL FIBRILLATION WITH RAPID VENTRICULAR RESPONSE Electronically Signed On 07-03-2016 20:11:11 EDT by Ulises Baptiste MD
[2016-07-04] MEDS: 0.9 % Sodium Chloride 1,000 ML IVC SCH ×3 (03:56→20:43)
[2016-07-04] MEDS: Albuterol 2.5 MG/3 ML NEBULIZER IH SCH ×4 (03:57→21:26)
[2016-07-04] MEDS: *HR* Metoprolol 5 MG/5 ML VIAL IVP SCH ×3 (05:31→18:27)
--- NOTE | 2016-07-04 07:59 | General Surgery Progress Note ---
Date of Encounter: 07/04/16 Time of Encounter: 07:20 - Assessment and Plan (1) Small bowel obstruction Current Visit: Yes Status: Acute POD #1 Resection of small bowel and mesentery with Dr. Salgado NPO except ice chips while awaiting return of bowel function IV fluids- 125ml/hour Supportive care/pain control IS every 1 hour while awake Ambulate in hallways PPI therapy am labs pathology pending 07/02/2016. The patient has done quite well after surgery and has now developed bowel sounds. Start clear liquids. We will get pathology results as Soon As Available 07/03/2016 the patient is doing quite well. He had bowel movement today. We will advance to regular diet and anticipate discharge for tomorrow. 07/04/2016. The patient had nausea and vomiting this morning as well as diarrhea. He has recovered his bowel function but is nauseated on regular diet. We will back him down to clear liquids. He also has hypokalemia. This will be treated with 4 doses of 40 mEq of potassium. We will observe him throughout the day I imagine he will likely be ready for discharge tomorrow. (2) DVT prophylaxis Current Visit: Yes Status: Acute EPCDs to bilateral lower extremities for DVT prophylaxis Ambulate hallways TID with assistance (3) Hypokalemia Current Visit: Yes Status: Acute The patient developed hypokalemia after nasogastric tube drainage from expected postoperative ileus and small bowel obstruction. His potassium will be replaced with 4 doses of 40 mEq of by mouth potassium Subjective Narrative: The patient experienced vomiting this morning. He also had extensive diarrhea. He complained bitterly of reflux after his regular diet. I believe that his bowel function has returned however he has developed nausea with regular food. We will back him down to clear liquid diet and observe him clinically throughout the day. He also has significant hypokalemia with a potassium of 2.9. We will replace his potassium with 40 mEq by mouth twice a day for 4 doses Objective Vital Signs - Last 8 Hours Temp Pulse Resp BP Pulse Ox 07/04/16 07:26 97.9 F 91 18 168/95 93 07/04/16 04:16 97.9 F 94 16 163/88 93 07/04/16 03:58 18 93 07/04/16 00:51 97.9 F 87 20 160/90 93 Intake and Output 07/03/16 07/03/16 07/04/16 15:59 23:59 07:59 Intake Total 2080 / 2080 1642 / 1642 1418 / 1418 Output Total 300 / 300 120 / 120 501 / 501 Balance 1780 / 1780 1522 / 1522 917 / 917 Intake: IV Fluids 1000 / 1000 1402 / 1402 598 / 598 0.9 % Sodium Chloride 1, 1000 / 1000 1402 / 1402 598 / 598 000 ML @ 125 mls/hr IVC . Q8H [facility] Rx#:[id number] Oral 1080 / 1080 240 / 240 820 / 820 Output: Urine 300 / 300 120 / 120 500 / 500 Stool / Other: Meal Lunch Stool Size Small Moderate Stool Consistency loose loose liquid Stool Color Brown Brown # Voids 1 1 # Bowel Movements 1 Weight 112 kg Patient Weight 07/04/16 23:59 Weight 112 kg - General physical appearance well developed, well nourished, no pain - Respiratory normal expansion, normal respiratory effort, clear to percussion, clear to auscultation - Cardiovascular Cardiovascular exam: Present: RRR, no murmurs/rubs/gallops - Incision Incision: Present: clean and dry - Labs 07/03/16 07:05 07/03/16 07:05 Diabetes panel 07/03/16 Range/Units 07:05 Sodium 142 (136-145) mEq/L Potassium 2.9 L (3.5-4.5) mEq/L Chloride 110 H (98-109) mEq/L Carbon Dioxide 21 (19-29) mEq/L BUN 10 (8-26) mg/dL Creatinine 0.84 (0.72-1.25) mg/dL Glucose 109 H (70-99) mg/dL Calcium 8.3 L (8.6-10.8) mg/dL Calcium panel 07/03/16 Range/Units 07:05 Calcium 8.3 L (8.6-10.8) mg/dL Pituitary panel 07/03/16 Range/Units 07:05 Sodium 142 (136-145) mEq/L Potassium 2.9 L (3.5-4.5) mEq/L Chloride 110 H (98-109) mEq/L Carbon Dioxide 21 (19-29) mEq/L BUN 10 (8-26) mg/dL Creatinine 0.84 (0.72-1.25) mg/dL Glucose 109 H (70-99) mg/dL Calcium 8.3 L (8.6-10.8) mg/dL Adrenal panel 07/03/16 Range/Units 07:05 Sodium 142 (136-145) mEq/L Potassium 2.9 L (3.5-4.5) mEq/L Chloride 110 H (98-109) mEq/L Carbon Dioxide 21 (19-29) mEq/L BUN 10 (8-26) mg/dL Creatinine 0.84 (0.72-1.25) mg/dL Glucose 109 H (70-99) mg/dL Calcium 8.3 L (8.6-10.8) mg/dL - VTE Documentation of Mechanical Device: Intermittent pneumatic compression device Consult Discharge Plan - Plan Referrals: Candis Head, NICOLÁS [Primary Care Provider] -
[2016-07-04] MEDS ORDERED: Potassium Chloride Elixir 20 MEQ/15 ML UDC PO SCH (09:00)
[2016-07-04] MEDS: Nicotine 14 MG PATCH.TD24 TD SCH (09:21)
[2016-07-04] MEDS: Ondansetron 4 MG/2 ML VIAL IVP PRN ×2 (11:45→18:27)
[2016-07-04] MEDS ORDERED: *HR* OxyCODONE/APAP 5/325 TABLET PO PRN (14:10)
[2016-07-04] MEDS ORDERED: Acetaminophen 325 MG TABLET PO PRN (14:11)
[2016-07-04] MEDS ORDERED: *HR* HYDROmorphone (PF) 1 MG/ML SYRINGE IVP PRN (14:12)
[2016-07-05] MEDS: Ondansetron 4 MG/2 ML VIAL IVP PRN ×2 (00:31→06:39)
[2016-07-05] MEDS: *HR* Metoprolol 5 MG/5 ML VIAL IVP SCH ×2 (00:31→05:33)
[2016-07-05] MEDS: Albuterol 2.5 MG/3 ML NEBULIZER IH SCH ×2 (04:40→11:09)
[2016-07-05 05:15] LABS: Basophils % 0.3 %; Eosinophils # 0.3 K/mcL (0.0-0.6); Eosinophils % 2.5 %; Hematocrit 32.9 % (37.5-50.1); Hemoglobin 10.9 g/dL (12.9-16.9); Immature Granulocytes % 0.8 % (0-4); Lymphocytes # 1.8 K/mcL (0.6-4.6); Lymphocytes % 17.3 %; Mean Corpuscular HGB Conc 33.1 g/dL (31.6-35.5); Mean Corpuscular Hemoglobin 28.9 pg (28.0-33.3); Mean Corpuscular Volume 87.3 fL (83.0-100.0); Monocytes # 1.3 K/mcL (0.0-1.3); Monocytes % 13.2 %; Neutrophils # 6.7 K/mcL (1.6-8.9); Platelet Count 361 K/mcL (140-400); Red Blood Count 3.77 M/mcL (4.19-5.50); Red Cell Distribution Width 14.6 % (11.5-14.5); Segmented Neutrophils % 65.9 %
[2016-07-05 05:24] LABS: BUN/Creatinine Ratio 5 (6-26); Calcium 7.6 mg/dL (8.6-10.8); Carbon Dioxide 22 mEq/L (19-29); Chloride 109 mEq/L (98-109); Glucose 86 mg/dL (70-99); Osmolality,Calculated 286 (280-300); Potassium 2.8 mEq/L (3.5-4.5); Sodium 140 mEq/L (136-145); eGFR For African Americans > 60 (> 60); eGFR For Non-African Americans > 60 (> 60)
[2016-07-05 05:25] LABS: Blood Urea Nitrogen 4 mg/dL (8-26)
[2016-07-05] MEDS: 0.9 % Sodium Chloride 1,000 ML IVC SCH (05:32)
[2016-07-05 07:25] VITALS: BP 151/81
--- NOTE | 2016-07-05 07:56 | Discharge Summary ---
Date of Encounter: 07/05/16 Time of Encounter: 07:45 - Discharge Diagnosis (1) Small bowel obstruction Priority: Primary Status: Acute Comments: Small bowel obstruction secondary to tumor, pathology pending at time of discharge (2) DVT prophylaxis Priority: Secondary Status: Acute (3) Hypokalemia Priority: Secondary Status: Acute - Discharge Medications Prescriptions: OxyCODONE/APAP 5/325 [Percocet 5/325 MG] 1 each PO Q6HR PRN #36 tablet PRN Reason: Moderate Pain Home Medications: Amlodipine [Norvasc] 5 mg PO QAM 01/24/15 [History] Aspirin Enteric Coated [Aspirin EC] 81 mg PO QAM 01/24/15 [History] Clopidogrel [Plavix] 75 mg PO QAM 01/24/15 [History] Esomeprazole Magnesium [Nexium] 40 mg PO QAM 01/24/15 [History] Loratadine [Claritin] 10 mg PO QAM 01/24/15 [History] Metoprolol [Lopressor] 75 mg PO BID 01/24/15 [History] Atorvastatin Calcium [Lipitor] 80 mg PO HS 06/28/16 [History] Nitroglycerin [Nitrostat] 0.4 mg SL Q5M PRN 06/28/16 [History] Potassium Chloride 10 meq PO DAILY 06/28/16 [History] Sildenafil Citrate [Viagra] 50 mg PO DAILY PRN 06/28/16 [History] Tamsulosin [Flomax] 0.4 mg PO DAILY 06/28/16 [History] OxyCODONE/APAP 5/325 [Percocet 5/325 MG] 1 each PO Q6HR PRN #36 tablet 07/05/16 [Rx] Allergies/Adverse Reactions: Allergies ezetimibe [From Vytorin] Adverse Reaction (Verified 06/28/16 19:39) Muscle Pain lisinopril Adverse Reaction (Verified 06/28/16 19:39) Cough simvastatin [From Vytorin] Adverse Reaction (Verified 06/28/16 19:39) Muscle Pain General Surgery Exam Initial Vital Signs Temp Pulse Resp BP Pulse Ox 98 F 128 22 131/71 92 06/28/16 19:33 06/28/16 19:33 06/28/16 19:33 06/28/16 19:33 06/28/16 19:33 - General physical appearance well developed, well nourished, no distress - Respiratory normal expansion, normal respiratory effort, clear to percussion, clear to auscultation - Cardiovascular Cardiovascular exam: Present: RRR, 15, 16 - Abdomen Abdomen general surgery: Present: bowel sounds present, soft, non tender - Incision Incision: Present: clean and dry - Psychiatric Psychiatric general surgery: Present: appropriate, oriented to person, oriented to place, oriented to time, speech is normal, memory intact Date of admission: 06/29/16 10:21 Primary care physician: Candis Head CNP Discharging clinician: Diego Salgado Anticipated date of discharge: 07/05/16 - Patient Status Disposition: Home, Self-Care Condition: Fair Functional capacity at discharge: independent ambulation Overall status at discharge: patient is progressing back to baseline - Discharge Instructions Follow Up With: Candis Head CNP [Primary Care Provider] - Diego Salgado MD [Partnered Physician] - Additional Instructions: Do not lift over 20 pounds until seen in office - Diet and Activity Activity: increase activity as tolerated Diet: advance to your usual diet - Hospital Course Hospital course: Mr. Mario is a 65 year old male With bowel obstruction and underwent small bowel resection of a tumor. pathology pending at time of discharge - Time Spent with Patient Total time spent providing and/or coordinating discharge services: Less than 30 minutes Labs on day of discharge: Labs from last 24 hours 07/05/16 07/05/16 07/04/16 04:30 04:30 16:10 WBC 10.1 RBC 3.77 L Hgb 10.9 L Hct 32.9 L MCV 87.3 MCH 28.9 MCHC 33.1 RDW 14.6 H Plt Count 361 MPV 9.0 L Immature Gran % 0.8 Seg Neutrophils % 65.9 Lymphocytes % 17.3 Monocytes % 13.2 Eosinophils % 2.5 Basophils % 0.3 Neutrophils # 6.7 Lymphocytes # 1.8 Monocytes # 1.3 Eosinophils # 0.3 Basophils # 0.0 Sodium 140 Potassium 2.8 L Chloride 109 Carbon Dioxide 22 BUN 4 L Creatinine 0.87 Est GFR ( Amer) > 60 Est GFR (Non-Af Amer) > 60 BUN/Creatinine Ratio 5 L Glucose 86 Calculated Osmolality 286 Calcium 7.6 L Stl C. diff Tox B Gene Negative
[2016-07-05] MEDS ORDERED: ESOMEPRAZOLE 40 MG PO SCH (09:00)
[2016-07-05] MEDS: Nicotine 14 MG PATCH.TD24 TD SCH (09:01)
--- NOTE | 2016-07-18 08:29 | General Surgery Progress Note ---
Date of Encounter: 07/18/16 Time of Encounter: 08:00 - Assessment and Plan (1) Small bowel obstruction Status: Acute POD #1 Resection of small bowel and mesentery with Dr. Salgado NPO except ice chips while awaiting return of bowel function IV fluids- 125ml/hour Supportive care/pain control IS every 1 hour while awake Ambulate in hallways PPI therapy am labs pathology pending 07/02/2016. The patient has done quite well after surgery and has now developed bowel sounds. Start clear liquids. We will get pathology results as Soon As Available 07/03/2016 the patient is doing quite well. He had bowel movement today. We will advance to regular diet and anticipate discharge for tomorrow. 07/04/2016. The patient had nausea and vomiting this morning as well as diarrhea. He has recovered his bowel function but is nauseated on regular diet. We will back him down to clear liquids. He also has hypokalemia. This will be treated with 4 doses of 40 mEq of potassium. We will observe him throughout the day I imagine he will likely be ready for discharge tomorrow. (2) DVT prophylaxis Status: Acute EPCDs to bilateral lower extremities for DVT prophylaxis Ambulate hallways TID with assistance (3) Hypokalemia Status: Acute The patient developed hypokalemia after nasogastric tube drainage from expected postoperative ileus and small bowel obstruction. 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 Medical oncology will be arranged as an outpatient. Subjective Narrative: Final pathology demonstrated small bowel carcinoid metastatic to small bowel mesenteric lymph node. Medical oncology follow-up will be arranged as an outpatient. Objective - General physical appearance well developed, well nourished, no distress, severe distress - Respiratory normal expansion, normal respiratory effort, clear to percussion, clear to auscultation - Abdomen Abdomen: Present: bowel sounds present, soft, non tender - Incision Incision: Present: clean and dry - Labs 07/05/16 04:30 07/05/16 04:30 - VTE Documentation of Mechanical Device: Intermittent pneumatic compression device Consult Discharge Plan - Plan Instructions: Bowel Obstruction (DC) Additional Instructions: Do not lift over 20 pounds until seen in office Referrals: Diego Salgado MD [Partnered Physician] - 07/19/16 8:20 am Prescriptions: OxyCODONE/APAP 5/325 [Percocet 5/325 MG] 1 each PO Q6HR PRN #36 tablet PRN Reason: Moderate Pain
== END 2016-07-05 11:10 | disposition home or self-care (01) | DRG 330 ==
LOC: 3ANU 19:22 → EMEROO 19:22 → 3ANU 23:25
PROVIDERS: ADMIT Surgery; ATTEND Surgery